=== PATIENT | female | born 1995 | race Caucasian/White ===

== ENCOUNTER 2020-02-08 08:00 | Outpatient (CLI) | payer OTHER ==
[2020-02-08 13:02] LABS: FOLLICLE STIMULATING HORMONE 7.25 mIU/mL
[2020-02-09 06:20] LABS: ESTRADIOL 132 pg/mL
[2020-02-10 12:34] LABS: DHEA SULFATE 357 mcg/dL (18-391)
== END 2020-02-08 23:59 | disposition home or self-care (01) ==
LOC: LAB.WCP 08:00
PROVIDERS: ATTEND Obstetrics & Gynecology
DX: N92.6 Irregular menstruation, unspecified (principal)
CPT/HCPCS: 36415; 82627; 82670; 83001; 84146; 84403; 84443; 84702

== ENCOUNTER 2020-02-23 14:48 | Outpatient (CLI) | payer OTHER | END 2020-02-23 23:59 | disposition home or self-care (01) | LOC: LAB.WCP 14:48 | PROVIDERS: ATTEND Nurse Practitioner Family | DX: Z02.1 Encounter for pre-employment examination (principal) | CPT/HCPCS: 36415; 86787 ==

== ENCOUNTER 2020-03-07 07:18 | Outpatient (CLI) | payer OTHER ==
--- NOTE | 2020-03-07 13:33 | Ultrasound Report ---
Reason: AMENORRHEA Procedure Date: 03/07/2020 Accession Number: [id number] Procedure: US - Pelvic w/Transvaginal CPT Code: Final Report FULL RESULT: EXAM: PELVIC ULTRASOUND EXAM DATE: 03/07/2020 08:23 AM. CLINICAL HISTORY: Amenorrhoea. COMPARISON: None. TECHNIQUE: Realtime transabdominal pelvic scan performed to identify the uterus and adnexa and as an overview of other pelvic structures, followed by transvaginal scan to provide greater detail of the uterus and adnexa, with static image documentation. FINDINGS: Uterus: 6.4 x 3.4 x 5.1 cm, volume 58 cc. Anteverted position. Normal overall size and echotexture. Masses: None. Endometrium: 4 mm. Normal. Cervix: Unremarkable. Right Ovary: 4.9 x 3.4 x 2.0 cm, volume 17 cc. The ovary is prominent and numerous small follicles are present greater in number than typical. Normal ovarian blood flow. Left Ovary: 4.2 x 3.2 x 3.0 cm, volume 21 cc. The ovary is prominent and numerous small follicles are present greater in number than typical. Normal ovarian blood flow. Free Fluid: Trace. Other: None. IMPRESSION: Ovaries are prominent bilaterally with numerous follicles in a pattern consistent with polycystic ovarian syndrome in the correct clinical setting. RADIA
== END 2020-03-07 07:19 | disposition home or self-care (01) ==
LOC: DI 07:18
PROVIDERS: ATTEND Obstetrics & Gynecology
DX: N91.2 Amenorrhea, unspecified (principal)
CPT/HCPCS: 76830; 76856

== ENCOUNTER 2020-06-09 09:39 | Outpatient (CLI) | payer OTHER | END 2020-06-09 23:59 | disposition home or self-care (01) | LOC: LAB.WCP 09:39 | PROVIDERS: ATTEND Obstetrics & Gynecology | DX: N91.2 Amenorrhea, unspecified (principal) | CPT/HCPCS: 36415; 84144; 84702 ==

== ENCOUNTER 2020-11-01 08:00 | Outpatient (CLI) | payer OTHER ==
[2020-11-02 12:28] LABS: BILIRUBIN,URINE NEGATIVE (NEGATIVE); GLUCOSE, URINE (UA) NEGATIVE (NEGATIVE); KETONES,URINE (UA) NEGATIVE (NEGATIVE); LEUKOCYTE ESTERASE, URINE NEGATIVE (NEGATIVE); NITRITE,URINE NEGATIVE (NEGATIVE); OCCULT BLOOD,URINE NEGATIVE (NEGATIVE); PROTEIN,URINE NEGATIVE (NEGATIVE); UROBILINOGEN,URINE 0.2 (NORMAL) E.U./dL (NORMAL)
[2020-11-02 12:39] LABS: CLARITY,URINE CLEAR (CLEAR)
[2020-11-02 13:16] LABS: BACTERIA,URINE Few /HPF (None Seen); MUCUS,URINE Few Strands; RBC,URINE None Seen /HPF (0-5); SQUAMOUS EPITHELIAL CELL,UR FEW Squamous (<= Few)
== END 2020-11-01 23:59 | disposition home or self-care (01) ==
LOC: LAB.R 08:00
PROVIDERS: ATTEND Obstetrics & Gynecology
DX: Z32.01 Encounter for pregnancy test, result positive (principal)
CPT/HCPCS: 81001; 87086

== ENCOUNTER 2020-11-14 07:31 | Outpatient (CLI) | payer OTHER ==
--- NOTE | 2020-11-14 18:39 | Ultrasound Report ---
PROCEDURE: OB First Trimester INDICATIONS: POSITIVE TEST OUTSIDE/PRIOR DATING DATA: Last menstrual period (LMP): 09/13/2020. LMP-based estimated date of delivery (TIM): 06/20/2021. First dating scan (date and location): 11/14/2020. Estimated date of delivery (TIM) from first dating scan: 06/30/2021. TECHNIQUE: Real-time scanning was performed of the fetus and maternal pelvic organs, with image documentation. COMPARISON: None. FINDINGS: Embryo: There is a single living intrauterine gestation with an estimated sonographic gestational ag e of approximately 7 weeks and 3 days based off crown-rump length measurement of 1.26 cm. Normal yolk sac visualized. No perigestational hemorrhage. heart rate measures approximately 141 bpm. Measurement variability in dating: +/- 4 weeks by LMP, +/- 7 days by mean sac diameter (use before 6 weeks gestation if crown-rump length not able to be measured), +/- 5 days by crown-rump length (6-12 weeks gestation). Maternal organs: Ovaries are unremarkable. Maternal cervix is visibly normal and appears long and cl osed. IMPRESSION: Single living intrauterine gestation with an estimated sonographic gestational age of approximately 7 weeks and 3 days based off crown-rump length measurement versus approximately 7 weeks and 4 days bas ed off mean gestational sac diameter. Recommend continued clinical and imaging surveillance with follow-up routine second trimester a natomic screening survey. Reviewed by: Sarmad Bueno MD on 11/14/2020 5:38 PM LUCIANO Approved by: Sarmad Bueno MD on 11/14/2020 5:38 PM [place] Station ID: [id number]
== END 2020-11-14 07:32 | disposition home or self-care (01) ==
LOC: DI 07:31
PROVIDERS: ATTEND Advanced Practice Midwife
DX: Z32.01 Encounter for pregnancy test, result positive (principal)

== ENCOUNTER 2020-11-28 08:00 | Outpatient (CLI) | payer OTHER ==
[2020-11-28 10:43] LABS: BASOPHILS % (AUTO) 0.3 %; EOSINOPHILS # (AUTO) 0.2 10^3/uL (0.0-0.7); EOSINOPHILS % (AUTO) 1.8 %; HGB - HEMOGLOBIN 13.6 g/dL (12.0-16.0); LYMPHOCYTES # (AUTO) 2.3 10^3/uL (1.5-3.5); LYMPHOCYTES % (AUTO) 18.4 %; MEAN CORPUSCULAR HEMOGLOBIN 30.7 pg (27.0-31.0); MEAN CORPUSCULAR HGB CONC 34.4 g/dL (32.0-36.0); MEAN CORPUSCULAR VOLUME 89.2 fL (81.0-99.0); MEAN PLATELET VOLUME 9.5 fL (7.9-10.8); MONOCYTES % (AUTO) 7.9 %; NEUTROPHILS # (AUTO) 8.7 10^3/uL (1.5-6.6); PLT - PLATELET COUNT 308 10^3/uL (130-450); RED BLOOD COUNT 4.43 10^6/uL (4.20-5.40); RED CELL DISTRIBUTION WIDTH 11.9 % (12.0-15.0); WHITE BLOOD COUNT 12.3 x10^3/uL (4.8-10.8)
[2020-11-28 12:34] LABS: HEMOGLOBIN A1c% 4.8 % (4.27-6.07)
[2020-11-28 13:50] LABS: ALBUMIN 4.2 g/dL (3.2-5.5); ALBUMIN/GLOBULIN RATIO 1.2 (1.0-2.2); BILIRUBIN,TOTAL 0.5 mg/dL (0.2-1.0); CALCIUM 9.3 mg/dL (8.5-10.3); CREATININE 0.6 mg/dL (0.4-1.0); TOTAL PROTEIN 7.6 g/dL (6.7-8.2)
[2020-11-29 12:22] LABS: HEPATITIS C ANTIBODY NON-REACTIVE (NON-REACTIVE)
[2020-11-29 12:23] LABS: HEPATITIS B SURFACE ANTIGEN NON-REACTIVE (NON-REACTIVE)
[2020-11-29 13:42] LABS: HIV AG/AB 4TH GEN NON-REACTIVE (NON-REACTIVE)
== END 2020-11-28 23:59 | disposition home or self-care (01) ==
LOC: LAB 08:00
PROVIDERS: ATTEND Obstetrics & Gynecology
DX: O99.280 Endocrine, nutritional and metabolic diseases complicating pregnancy, unspecified trimester (principal); E28.2 Polycystic ovarian syndrome; Z36.89 Encounter for other specified antenatal screening; Z86.79 Personal history of other diseases of the circulatory system
CPT/HCPCS: 36415; 80053; 80306; 81001; 81599; 83036; 84443; 85025; 86592; 86762; 86787; 86803; 86850; 86900; 86901; 87086; 87340; 87389

== ENCOUNTER 2020-11-28 08:00 | Outpatient (CLI) | payer OTHER ==
[2020-11-28 16:28] LABS: MUDS CUTOFF CONCENTRATIONS CUTOFF CONC BELOW:
[2020-11-28 16:39] LABS: BILIRUBIN,URINE NEGATIVE (NEGATIVE); GLUCOSE, URINE (UA) NEGATIVE (NEGATIVE); KETONES,URINE (UA) NEGATIVE (NEGATIVE); LEUKOCYTE ESTERASE, URINE TRACE (NEGATIVE); NITRITE,URINE NEGATIVE (NEGATIVE); OCCULT BLOOD,URINE NEGATIVE (NEGATIVE); PROTEIN,URINE NEGATIVE (NEGATIVE); UROBILINOGEN,URINE 0.2 (NORMAL) E.U./dL (NORMAL)
[2020-11-28 16:54] LABS: AMPHETAMINE SCREEN,URINE NEGATIVE (NEGATIVE); BENZODIAZEPINES SCREEN, URINE NEGATIVE (NEGATIVE); COCAINE SCREEN URINE NEGATIVE (NEGATIVE); METHADONE SCREEN, URINE NEGATIVE (NEGATIVE); METHAMPHETAMINES SCREEN, URINE NEGATIVE (NEGATIVE); OPIATE SCREEN, URINE NEGATIVE (NEGATIVE); OXYCODONE SCREEN, URINE NEGATIVE (NEGATIVE); PROPOXYPHENE SCREEN, URINE NEGATIVE (NEGATIVE); TRICYCLIC ANTIDEPRESSANT,URINE NEGATIVE (NEGATIVE)
[2020-11-28 16:59] LABS: CREATININE,URINE 85.7 mg/dL
[2020-11-28 17:00] LABS: TOTAL PROTEIN,URINE TIMED < 6 mg/dL
[2020-11-28 17:04] LABS: BACTERIA,URINE Few /HPF (None Seen); CLARITY,URINE CLEAR (CLEAR); RBC,URINE 0-5 /HPF (0-5); SQUAMOUS EPITHELIAL CELL,UR FEW Squamous (<= Few)
[2020-11-28 21:54] LABS: TRICHOMONAS VAGINALIS DNA NEGATIVE (NEGATIVE)
== END 2020-11-28 23:59 | disposition home or self-care (01) ==
LOC: LAB.R 08:00
PROVIDERS: ATTEND Obstetrics & Gynecology
DX: Z34.90 Encounter for supervision of normal pregnancy, unspecified, unspecified trimester (principal); Z36.89 Encounter for other specified antenatal screening; Z11.3 Encounter for screening for infections with a predominantly sexual mode of transmission; Z86.79 Personal history of other diseases of the circulatory system
CPT/HCPCS: 80306; 81001; 82570; 84156; 87086; 87491; 87591; 87661

== ENCOUNTER 2020-12-27 08:00 | Outpatient (CLI) | payer OTHER ==
[2020-12-27 16:41] LABS: CREATININE,URINE 81.4 mg/dL
[2020-12-27 16:58] LABS: TOTAL PROTEIN,URINE TIMED < 6 mg/dL
[2020-12-28 15:51] LABS: CREATININE 24 HOUR,URINE 2076 mg/24h (600-1800); TOTAL VOLUME 24HRS,URINE 2550 mL
== END 2020-12-27 23:59 | disposition home or self-care (01) ==
LOC: LAB 08:00
PROVIDERS: ATTEND Obstetrics & Gynecology
DX: O16.9 Unspecified maternal hypertension, unspecified trimester (principal)
CPT/HCPCS: 82570; 84156

== ENCOUNTER 2021-01-03 11:59 | Outpatient (CLI) | payer OTHER | END 2021-01-03 12:00 | disposition home or self-care (01) | LOC: LAB 11:59 | PROVIDERS: ATTEND Advanced Practice Midwife | DX: O46.92 Antepartum hemorrhage, unspecified, second trimester (principal); Z87.59 Personal history of other complications of pregnancy, childbirth and the puerperium | CPT/HCPCS: 36415; 84702; 86850 ==

== ENCOUNTER 2021-02-12 08:11 | Outpatient (CLI) | payer OTHER ==
--- NOTE | 2021-02-12 11:06 | Ultrasound Report ---
PROCEDURE: OB Detailed Eval INDICATIONS: SUPERVISION OF HIGH RISK OUTSIDE/PRIOR DATING DATA: Last menstrual period (LMP): 09/13/2020. LMP-based estimated date of delivery (TIM): 06/20/2021. First dating scan (date and location): 11/14/2020. Estimated date of delivery (TIM) from first dating scan: 06/30/2021. TECHNIQUE: Real-time scanning was performed of the fetus, with image documentation and biometric measurements. Endovaginal scanning: Not indicated COMPARISON: 11/14/2020. FINDINGS: General: A single living intrauterine gestation is present. Presentation: Vertex Placenta: Placental position is low posterior, without previa. Amniotic fluid index: 11 cm, 14.7 percentile for gestational age. Largest pocket measures 3.8 cm. heart rate: 144 beats per minute. Maternal cervical canal: 3.6 cm long; normal length is 2.5 cm or more. biometrics: Biparietal diameter: 4.8 cm, 20 weeks, 3 days Head circumference: 17.4 cm, 20 weeks, 0 day Abdominal circumference: 14.8 cm, 20 weeks, 1 day Femur length: 3.3 cm, 20 weeks, 2 days Estimated gestational age from initial scan: 20 weeks, 2 days. Composite gestational age from present scan: 20 weeks, 2 days Estimated weight and percentile: 340 g, 41.3%. Measurement variability in biometric dating: +/- 10 days from 12-20 weeks gestation, +/- 2 weeks from 20-30 weeks gestation, +/- 3 weeks at 30 weeks gestation or later. Anatomic survey: Neuro: Ventricles are normal at less than 10 mm. Cisterna magna is normal at 3-11 mm. Cerebellum i s normal in size and morphology. Nuchal skin fold: Normal at less than 6 mm between 14 and 20 weeks gestational age. Face: Nose and lips, facial profile are normal. Spine: No evidence for spina bifida. Heart: 4-chambered heart is present, with normal ventricular outflow tracts. Diaphragm: Diaphragm is intact. Stomach: Left-sided stomach is present. Kidneys: No hydronephrosis. Normal is less than 5 mm in 2nd trimester, less than 7 mm in 3rd trimester. Cord: 3 vessel cord has orthotopic insertion. Bladder: Normal in size. Extremities: All 4 extremities are visualized. IMPRESSION: 1. Single live intrauterine with fetus in vertex presentation. heart rate is 144 bpm. 2. Estimated weight is at 41.3 percentile. 3. OSCAR equals 11 cm with largest pocket measures 3.8 cm which is at 14.7 percentile. 4. Normal anatomic survey. Reviewed by: Hugo Blancas MD on 02/12/2021 10:05 AM CHARMAINE Approved by: Hugo Blancas MD on 02/12/2021 10:05 AM HIGIULIA Station ID: [id number]
== END 2021-02-12 08:12 | disposition home or self-care (01) ==
LOC: DI 08:11
PROVIDERS: ATTEND Obstetrics & Gynecology
DX: Z36.89 Encounter for other specified antenatal screening (principal); O09.90 Supervision of high risk pregnancy, unspecified, unspecified trimester; Z3A.20 20 weeks gestation of pregnancy

== ENCOUNTER 2021-02-20 14:31 | Outpatient (CLI) | payer OTHER ==
[2021-02-20 18:21] LABS: PROTEIN/CREATININE RATIO,URINE 0.1 (<=0.2)
[2021-02-20 18:28] LABS: ALBUMIN 3.7 g/dL (3.2-5.5); ALBUMIN/GLOBULIN RATIO 1.1 (1.0-2.2); BILIRUBIN,TOTAL 0.5 mg/dL (0.2-1.0); CALCIUM 8.7 mg/dL (8.5-10.3); CREATININE 0.6 mg/dL (0.4-1.0); POTASSIUM 3.5 mmol/L (3.5-5.0); TOTAL PROTEIN 7.1 g/dL (6.7-8.2)
[2021-02-20 18:38] LABS: HCT - HEMATOCRIT 36.2 % (37.0-47.0); HGB - HEMOGLOBIN 12.2 g/dL (12.0-16.0); MEAN CORPUSCULAR HEMOGLOBIN 31.7 pg (27.0-31.0); MEAN CORPUSCULAR HGB CONC 33.7 g/dL (32.0-36.0); MEAN PLATELET VOLUME 10.8 fL (7.9-10.8); RED BLOOD COUNT 3.85 10^6/uL (4.20-5.40); RED CELL DISTRIBUTION WIDTH 12.7 % (12.0-15.0); WHITE BLOOD COUNT 11.2 x10^3/uL (4.8-10.8)
== END 2021-02-20 23:59 | disposition home or self-care (01) ==
LOC: LAB.WCP 14:31
PROVIDERS: ATTEND Obstetrics & Gynecology
DX: O16.9 Unspecified maternal hypertension, unspecified trimester (principal); O09.90 Supervision of high risk pregnancy, unspecified, unspecified trimester
CPT/HCPCS: 36415; 80053; 82570; 84156; 85027

== ENCOUNTER 2024-04-14 15:18 | Outpatient (CLI) | payer OTHER ==
--- NOTE | 2024-04-14 22:56 | Ultrasound Report ---
PROCEDURE: OB Anatomy Scan INDICATIONS: SUPERVISION OF NORMAL OUTSIDE/PRIOR DATING DATA: Last menstrual period (LMP): 08/31/2023. LMP-based estimated date of delivery (TIM): 08/24/2024. First dating scan (date and location): 04/14/2024. Estimated date of delivery (TIM) from first dating scan: 08/24/2024. The below data below was generated using the clinical/ultrasound TIM of 08/24/2024 TECHNIQUE: Real-time scanning was performed of the fetus, with image documentation and biometric measurements. COMPARISON: None FINDINGS: General: A single living intrauterine gestation is present. Presentation: Variable Placenta: Placental position is posterior, without previa. Amniotic fluid index: 11.9 cm, within normal limits for gestational age. heart rate: 143 beats per minute. Maternal cervical canal: 5.0 cm long; normal length is 2.5 cm or more. biometrics: Biparietal diameter: 5.0 cm 21 weeks 0 days 42nd percentile Head circumference: 19.1 cm 21 weeks 3 days 51st percentile Abdominal circumference: 16.5 cm 21 weeks 4 days 57th percentile Femur length: 3.7 cm 21 weeks 5 days 61st percentile Estimated gestational age from initial scan: 21 weeks 1 day Composite gestational age from present scan: 21 weeks 2 days Estimated weight and percentile: 435 g 69th percentile Measurement variability in biometric dating: +/- 10 days from 12-20 weeks gestation, +/- 2 weeks from 20-30 weeks gestation, +/- 3 weeks at 30 weeks gestation or later. Anatomic survey: Neuro: Ventricles are normal at less than 10 mm. Cisterna magna is normal at 3-11 mm. Cerebellum i s normal in size and morphology. Nuchal skin fold: Normal at less than 6 mm between 14 and 20 weeks gestational age. Face: Nose and lips, facial profile are normal. Spine: No evidence for spina bifida. Heart: 4-chambered heart is present, with normal ventricular outflow tracts. Diaphragm: Diaphragm is intact. Stomach: Left-sided stomach is present. Kidneys: No hydronephrosis. Normal is less than 5 mm in 2nd trimester, less than 7 mm in 3rd trimester. Cord: 3 vessel cord has orthotopic insertion. Bladder: Normal in size. Extremities: All 4 extremities are visualized. IMPRESSION: Single live intrauterine with gestational age today of 21 weeks 2 days. Anatomy is within normal limits. Reviewed by: Kim Alberts MD on 04/14/2024 10:55 PM PDT Approved by: Kim Alberts MD on 04/14/2024 10:55 PM PDT Station ID: [id number]
== END 2024-04-14 15:19 | disposition home or self-care (01) ==
LOC: DI 15:18
PROVIDERS: ATTEND Nurse Practitioner Obstetrics & Gynecology
DX: Z34.02 Encounter for supervision of normal first pregnancy, second trimester (principal); Z36.89 Encounter for other specified antenatal screening

== ENCOUNTER 2024-05-14 14:31 | Outpatient (CLI) | payer OTHER ==
[2024-05-14 15:56] LABS: HCT - HEMATOCRIT 35.2 % (37.0-47.0); HGB - HEMOGLOBIN 12.1 g/dL (12.0-16.0); MEAN CORPUSCULAR HEMOGLOBIN 31.7 pg (27.0-31.0); MEAN CORPUSCULAR HGB CONC 34.4 g/dL (32.0-36.0); MEAN CORPUSCULAR VOLUME 92.1 fL (81.0-99.0); RED BLOOD COUNT 3.82 10^6/uL (4.20-5.40); RED CELL DISTRIBUTION WIDTH 12.9 % (12.0-15.0)
== END 2024-05-14 14:32 | disposition home or self-care (01) ==
LOC: LAB 14:31
PROVIDERS: ATTEND Nurse Practitioner Obstetrics & Gynecology
DX: Z36.9 Encounter for antenatal screening, unspecified (principal); Z67.91 Unspecified blood type, Rh negative
CPT/HCPCS: 36415; 82950; 85027; 86850

== ENCOUNTER 2024-07-27 17:14 | Outpatient (CLI) | payer OTHER | END 2024-07-27 17:15 | disposition home or self-care (01) | LOC: LAB.WC 17:14 | PROVIDERS: ATTEND Nurse Practitioner | DX: Z36.85 Encounter for antenatal screening for Streptococcus B (principal) | CPT/HCPCS: 87797 ==

== ENCOUNTER 2024-08-17 06:21 | Inpatient (IN) ==
[2024-08-17] MEDS ORDERED: hydrALAZINE INJ 20 MG/ML VIAL IVP PRN (06:40)
[2024-08-17] MEDS ORDERED: miSOPROStoL 200 MCG TABLET PR PRN (06:40)
[2024-08-17] MEDS ORDERED: TERBUTALINE 1 MG/ML VIAL SUBQ PRN (06:40)
[2024-08-17] MEDS ORDERED: NIFEdipine 10 MG CAPSULE PO PRN (06:40)
[2024-08-17] MEDS ORDERED: CARBOPROST TROMETHAMINE 250 MCG/ML VIAL IM PRN (06:40)
[2024-08-17] MEDS ORDERED: TRANEXAMIC ACID IN NACL 1,000 MG/100 ML BAG IV PRN (06:40)
[2024-08-17] MEDS ORDERED: miSOPROStoL 200 MCG TABLET BC PRN (06:40)
[2024-08-17] MEDS ORDERED: LABETALOL 20 MG/4 ML SYRINGE IVP PRN ×3 (06:40)
[2024-08-17] MEDS ORDERED: OXYTOCIN 10 UNIT/ML VIAL IM PRN (06:40)
[2024-08-17] MEDS ORDERED: lidocaine 1% 20 ML MDV ID PRN (06:40)
[2024-08-17] MEDS ORDERED: SODIUM CHLORIDE FLUSH 0.9% 10 ML SYRINGE IVP PRN (06:40)
[2024-08-17] MEDS ORDERED: fentaNYL 100 MCG/2 ML VIAL IVP PRN (06:40)
[2024-08-17] MEDS ORDERED: OXYTOCIN/SODIUM CHLORIDE 500 ML IV PRN ×2 (06:40→14:36)
[2024-08-17 07:49] LABS: BASOPHILS % (AUTO) 0.4 %; EOSINOPHILS # (AUTO) 0.2 10^3/uL (0.0-0.7); EOSINOPHILS % (AUTO) 2.2 %; HCT - HEMATOCRIT 35.4 % (37.0-47.0); HGB - HEMOGLOBIN 11.7 g/dL (12.0-16.0); LYMPHOCYTES # (AUTO) 2.1 10^3/uL (1.5-3.5); LYMPHOCYTES % (AUTO) 21.7 %; MEAN CORPUSCULAR HEMOGLOBIN 29.8 pg (27.0-31.0); MEAN CORPUSCULAR HGB CONC 33.1 g/dL (32.0-36.0); MEAN CORPUSCULAR VOLUME 90.3 fL (81.0-99.0); MEAN PLATELET VOLUME 11.3 fL (7.9-10.8); MONOCYTES # (AUTO) 0.7 10^3/uL (0.0-1.0); MONOCYTES % (AUTO) 7.4 %; NEUTROPHILS # (AUTO) 6.5 10^3/uL (1.5-6.6); NEUTROPHILS % (AUTO) 67.7 %; PLT - PLATELET COUNT 256 10^3/uL (130-450); RED BLOOD COUNT 3.92 10^6/uL (4.20-5.40); RED CELL DISTRIBUTION WIDTH 13.9 % (12.0-15.0); WHITE BLOOD COUNT 9.6 x10^3/uL (4.8-10.8)
[2024-08-17] MEDS: LACTATED RINGERS 1,000 ML IV PRN (07:49)
[2024-08-17] MEDS ORDERED: LIDOCAINE 2%-EPI 1:100000 20 ML MDV ONE (07:50)
[2024-08-17] MEDS ORDERED: ROPIVACAINE 0.2% 200 MG/100 ML BAG EP ONE (07:50)
[2024-08-17] MEDS: SODIUM CHLORIDE FLUSH 0.9% 10 ML SYRINGE IVP SCH (08:00)
[2024-08-17] MEDS ORDERED: ePHEDrine 50 MG/ML VIAL IVP ONE (08:22)
[2024-08-17 08:30] LABS: ALBUMIN 3.3 g/dL (3.2-5.5); BILIRUBIN,TOTAL 0.3 mg/dL (0.2-1.0); CREATININE 0.6 mg/dL (0.6-1.3); POTASSIUM 3.7 mmol/L (3.5-4.5); TOTAL PROTEIN 6.5 g/dL (6.4-8.9)
[2024-08-17] MEDS ORDERED: ePHEDrine 50 MG/ML VIAL IVP PRN (08:42)
[2024-08-17] MEDS ORDERED: diphenhydrAMINE INJ 50 MG/ML VIAL IVP PRN (08:42)
[2024-08-17] MEDS ORDERED: METOCLOPRAMIDE 10 MG/2 ML VIAL IVP PRN (08:42)
[2024-08-17] MEDS ORDERED: NALBUPHINE 10 MG/ML AMP IVP PRN (08:42)
[2024-08-17] MEDS ORDERED: ONDANSETRON 4 MG/2 ML VIAL IVP PRN (08:42)
[2024-08-17] MEDS ORDERED: NALOXONE 0.4 MG/ML VIAL IVP PRN (08:42)
--- NOTE | 2024-08-17 08:42 | ANESTHESIA PROCEDURE NOTE ---
Pre-Anesthesia VS, & Labs Diagnosis Surgical Diagnosis:: labor pain Procedure Procedure: labor epidural Vitals Vital Signs: Temp Pulse Resp BP 37.0 C 100 H 16 143/96 H 08/17/24 07:53 08/17/24 07:53 08/17/24 07:53 08/17/24 07:53 Height (in): 5 ft 9 in NPO NPO: Other Is Patient ?: Yes Lab Results Current Lab Results: Laboratory Tests 08/17/24 07:53: Sodium 133 L, Potassium 3.7, Chloride 104, Carbon Dioxide 22, Anion Gap 7.0, BUN 9, Creatinine 0.6, Estimated GFR (MDRD) 118, Glucose 111 H, Calcium 9.0, Total Bilirubin 0.3, AST 12, ALT 11, Alkaline Phosphatase 97, Total Protein 6.5, Albumin 3.3, Globulin 3.2, Albumin/Globulin Ratio 1.0 08/17/24 07:25: WBC 9.6, RBC 3.92 L, Hgb 11.7 L, Hct 35.4 L, MCV 90.3, MCH 29.8, MCHC 33.1, RDW 13.9, Plt Count 256, MPV 11.3 H, Neut # (Auto) 6.5, Lymph # (Auto) 2.1, [place] # (Auto) 0.7, Eos # (Auto) 0.2, Baso # (Auto) 0.0, Absolute Nucleated RBC 0.00, Nucleated RBC % 0.0 08/17/24 07:25 08/17/24 07:53 Meds/Allgy Allergies Allergies Allergy/AdvReac Type Severity Reaction Status Date / Time No Known Drug Allergies Allergy Verified 08/17/24 07:48 [facility] Medical History Medical History (Updated 08/13/24 @ 19:06 by Carolynn Worthington CNM, ANGELICA) History of PCOS Family History Family History (Updated 08/13/24 @ 08:54 by Pili Pleitez LPN) Mother High blood pressure Thyroid disease Brother High blood pressure Aunt Breast cancer Social History Social History (Updated 08/13/24 @ 08:51 by Pili Pleitez LPN) Smoking Status: Never smoker Do you dip or chew tobacco?: No Do you feel safe in your home environment?: Yes Frequency: Weekly ETOH Use Details: two weekly Substance Use: denies use Anesthesia Exam (Expanded) Exam General: Alert, Oriented x3 and Cooperative Dental: WNL Mouth Openin Fingerbreadth Neck Mobility: Normal Mallampati classification: II Thyromental Distance: 4-6 cm Respiratory: Lungs clear Cardiovascular: Regular rate Plan Plan Anesthesia Type: Epidural Consent for Procedure(s) Verified and Reviewed: Yes Code Status: Attempt Resuscitation ASA Classification ASA classification: 3-Severe systemic disease Is this case an emergency?: No
[2024-08-17] MEDS: LACTATED RINGERS 500 ML IV ONE (09:00)
[2024-08-17] MEDS: OXYTOCIN/SODIUM CHLORIDE 500 ML IV SCH (09:57)
--- NOTE | 2024-08-17 10:01 | HISTORY & PHYSICAL EXAMINATION ---
Admit History Visit Reason Visit Reason: Contractions and Membranes rupture : 4 Parity: 2 Premature: 0 Ectopic: 0 : 1 Risk/History: positive None Complications This : positive induced HTN Smoking Status: Never smoker Mother's Labs Mother's Blood Type: positive O Mother's RH: positive Negative GBS: positive Group B Step Negative Rubella Status: positive Immune HPI Current : Vital Signs Temperature 37.0 C 08/17/24 07:53 Pulse Rate 100 H 08/17/24 07:53 Respiratory Rate 16 08/17/24 07:53 Blood Pressure 143/96 H 08/17/24 07:53 Temperature 37.0 C 08/17/24 07:53 Pulse Rate 100 H 08/17/24 07:53 Respiratory Rate 16 08/17/24 07:53 Blood Pressure 143/96 H 08/17/24 07:53 NST Procedure NST Procedure: NST reactive. FHR baseline 150s, moderate variability, + accels, no decels Contractions palpate moderate occasionally with soft resting tone Meds/Allgy Allergies Allergies Allergy/AdvReac Type Severity Reaction Status Date / Time No Known Drug Allergies Allergy Verified 08/17/24 07:48 [facility] Medical History Medical History (Updated 08/13/24 @ 19:06 by Carolynn Worthington, YARA, ANGELICA) History of PCOS Family History Family History (Updated 08/13/24 @ 08:54 by Pili Pleitez LPN) Mother High blood pressure Thyroid disease Brother High blood pressure Aunt Breast cancer Social History Social History (Updated 08/13/24 @ 08:51 by Pili Pleitez LPN) Smoking Status: Never smoker Do you dip or chew tobacco?: No Do you feel safe in your home environment?: Yes Frequency: Weekly ETOH Use Details: two weekly Substance Use: denies use Review of Systems Constitutional Denies: Fatigue, Fever or Chills Cardiovascular Denies: Irregular heart rate, chest pain or shortness of breath with exertion Respiratory Denies: Shortness of breath, Wheezing or SOB at rest Gastrointestinal Denies: Abdominal pain, Nausea, Diarrhea or Constipation Genitourinary Denies: Painful urination, Urinary frequency, Urinary urgency, Urinary incontinence, Painful menstruation, Vaginal discharge, Change in menstrual flow, Genital itching, Vaginal odor or Pain during intercourse Neurological Denies: Headache Psychiatric Denies: Depression or Anxiety Endocrine Denies: Fatigue Allergic/Immunologic Denies: Wheezing Physical Abdominal Exam Vital Signs: Temp Pulse Resp BP 37.0 C 100 H 16 143/96 H 08/17/24 07:53 08/17/24 07:53 08/17/24 07:53 08/17/24 07:53 Contraction Intensity: positive Moderate Uterine Resting Tone: positive Soft Monitoring Heart Rate Baseline: 150 Strip Review: positive Category I Presentation Presentation: positive Vertex Vaginal Exam Membranes: positive Membranes ruptured Dilation (in cm): 5 Effacement (%): 70 Station: positive -2 Cervical Position: positive Midposition Speculum Exam Speculum Exam Performed: positive No Findings: positive Gross leak Plan for Labor Plan For Labor I expect patient to be DC'd or transferred within 96 hours.: Yes Plan for Labor: Pauline presents to [facility] w/ complaints of active labor. She is a who is currently 39.0wks gestation. She reports waking early this morning to a strong contraction which was followed by leakage of "gush" of clear vaginal fluid. She reports occasional painful contractions since that time. Upon arrival cervix was 5/70/-3, posterior and vertex with grossly ruptured membranes. FHR demonstrates Category I pattern with 150bpm baseline. She will be admitted to [facility] for expectant management and she is requesting and epidural as soon as possible for pain management. She has been a patient of [facility] care since her transfer for [facility] from [facility] at 36wks gestation. She has received consistent care for the duration of her which has been complicated by intermittently elevated blood pressure giving her the diagnosis of gestational hypertension. She has tracked her blood pressure at home consistently throughout her and it has always remained WNL. She has had labs intermittently throughout her and they have remained WNL. She denies SOLOMON, visual disturbances RUQ or epigastric pain. She reports edema but feels it is consistent with what it has been in her previous pregnancies at this gestational age. In addition to her gestational hypertention she has a history significant for hemorrhage following her last delivery and will by typed and crossmatched with 2 units of blood on hold at the time of delivery. Pt accepting of blood transfusion if necessary and accepts active management of the third stage of labor. Dating criteria: LMP: unknown TIM by LMP: N/A US: first trimester ultrasound dates with TIM 08/24/2024 Final TIM: 08/24/2024 OB Hx: ; Chris G1: SAB G2: 06/13/2021- [facility] G3: 01/07/2023 - [facility]. PP hemorrhage marketing sales supervisor Hx: Term NSVB x 2. SAB x 1. Last pap 06/2022 WNL, no hx abnormal. Denies history of gonorrhea, chlamydia, genital herpes, oral herpes, or any other STIs. Sexual partner does NOT have HSV (oral or genital). Medical Hx: PCOS, Hypothyroidism Surgical Hx: none Social Hx: Monogomous with male partner Chris. Stopped drinking alcohol due to . Denies current use of tobacco, marijuana, or other recreational drugs. Reports that she is safe in current relationship. Family Hx: Thyroid disease - mother; Denies family hx of congenital anomalies, Cystic Fibrosis or chromosomal abnormalities. Pre- Weight: 207 BMI: 30 Blood type: O neg Antibody Screen: neg RUB: NR VZV: immune HBsAg: NR HepC: NR RPR: NR HIV: NR Flu: 07/27/2024 Covid: x1 PAP: 06/2022 WNL, no hx abnormal GC/CT: neg HSV: Denies in self and partner Genetic testing: declined FAS: 04/14/2024 WNL Placenta: Posterior, no previa Cord: 3VC OCSAR: 11.9 (WNL) EFW: 69%tile 50gm OGCT: 111 TDAP: 07/27/24 Breast Pump: has Antibody screen: negative 05/14/2024 RHOGAM administered: 06/01/2024 CBC: PLT-261/HCT-35.2/HGB-12.1 GBS: 07/27/2024- Negative Delivery plan: Desires epidural for pain management MOD: Anticipate . PP BC: natural family planning - unsure of plans for future Physical exam: normocephalic, atraumatic heart RRR w/o m/g/r Lungs CTAB Abdomen gravid, soft, nontender EFW 3900g FHR baseline 150s, moderate variability, + accels, no decels contractions palpate strong occasionally with soft resting tone SVe 5/70/-3, posterior. Vertex. Grossly ruptured membranes, clear fluid Bilateral LE's trace edema. Mood is good Assessment: 29yo @ 39.0wks gestation Gestational hypertension Active labor FHR Category I GBS neg Plan: Anesthesia notified for placement of epidural for pain management per pt request. Continuous monitoring. Encouraged position changes in bed on peanut ball. Type and cross x 2 units secondary to hx of pp hemorrhage. Anticipate . Conclusion/Plan Lab Results 08/17/24 07:25 08/17/24 07:53
[2024-08-17] MEDS ORDERED: HYDROCORTISONE 1% CREAM 28 GM TUBE TOP PRN (14:36)
[2024-08-17] MEDS ORDERED: SIMETHICONE CHEW 80 MG TABLET PO PRN (14:36)
[2024-08-17] MEDS ORDERED: WITCH HAZEL/GLYCERIN 1 PAD TOP PRN (14:36)
[2024-08-17] MEDS: ACETAMINOPHEN 500 MG TABLET PO PRN (15:04)
[2024-08-17] MEDS: IBUPROFEN 800 MG TABLET PO PRN (15:04)
--- NOTE | 2024-08-17 18:39 | DELIVERY NOTE ---
Delivery Note Labor Labor: positive Spontaneous and Augmented by oxytocin Delivery Method Infant Delivery Method: positive Spontaneous vaginal delivery Presentation Presentation: positive Vertex and JENNA - left occiput anterior Nuchal Cord Nuchal Cord: positive None Amniotic Fluid Description Amniotic Fluid Description: positive Clear Episiotomy Type Episiotomy Type: positive None Laceration Laceration: positive 1st degree Suture Suture Type: positive Vicryl Suture Size: positive 3-0 Delivery Outcome Delivery Outcome: positive Livebirth : positive Placed in direct skin contact with mother, Stimulated, Warmed and [place] used sex: positive Male Cord Cord: positive 3 vessels Placenta Placenta: positive Intact and Spontaneous Estimated Blood Loss Estimated Blood Loss (in cc): 375 Post Delivery Events Post Delivery Events: positive No post delivery events Delivery Comments (Free Text/Narrative) Delivery Comments (Free Text/Narrative): Labor: This 29yo @ 39.0 wks gestation by LMP presented to [facility] in active labor and s/p SROM with vaginal leakage of clear fluid that occurred at 0545 on 08/17/2024. Cervix was 5/70/-2 and vertex. FHR demonstrated Category I pattern throughout labor. Normal labor course. Epidural placed per maternal request. She progressed to c/c/+1 at 1341 with onset of pushing at 1402. : Normal SVB of viable male on 08/17/2024 @ 1406. Nucal. The was placed on maternal abdomen, stimulated, dried, and placed skin to skin. 's were 8/9 at 1 and 5 min respectively. Pitocin administered via IV for hemostasis. The umbilical cord was allowed to stop pulsating at which time it was doubly clamped by CNM and cut by FOB. Cord blood was obtained. 3VC. Fundal massage and gentle cord traction applied for active management of the third stage. Placenta delivered spontaneously and intact at 1412. EBL 375mL. Fourth stage: Uterine fundus firm and there is no excessive bleeding. The perineum, vagina, and cervix were inspected and found to have a 1st degree perineal laceration which was repaired using a 3-[address]-1 needle, in standard fashion and under sterile conditions. Vaginal examination following repair was performed. Tissues well approximated. initiated. Both mother and baby were left in stable condition.
[2024-08-17] MEDS: DOCUSATE SODIUM 100 MG CAPSULE PO SCH (20:40)
[2024-08-17] MEDS: LABETALOL 100 MG TABLET PO SCH (21:06)
[2024-08-17 21:22] LABS: BASOPHILS % (AUTO) 0.3 %; EOSINOPHILS # (AUTO) 0.1 10^3/uL (0.0-0.7); EOSINOPHILS % (AUTO) 0.5 %; HCT - HEMATOCRIT 32.4 % (37.0-47.0); HGB - HEMOGLOBIN 10.7 g/dL (12.0-16.0); LYMPHOCYTES # (AUTO) 2.1 10^3/uL (1.5-3.5); LYMPHOCYTES % (AUTO) 14.8 %; MEAN CORPUSCULAR HEMOGLOBIN 29.8 pg (27.0-31.0); MEAN CORPUSCULAR VOLUME 90.3 fL (81.0-99.0); MONOCYTES # (AUTO) 1.6 10^3/uL (0.0-1.0); MONOCYTES % (AUTO) 11.2 %; NEUTROPHILS # (AUTO) 10.5 10^3/uL (1.5-6.6); NEUTROPHILS % (AUTO) 72.6 %; PLT - PLATELET COUNT 247 10^3/uL (130-450); RED BLOOD COUNT 3.59 10^6/uL (4.20-5.40); RED CELL DISTRIBUTION WIDTH 13.7 % (12.0-15.0); WHITE BLOOD COUNT 14.4 x10^3/uL (4.8-10.8)
[2024-08-17 21:32] LABS: SLIDE REVIEW? Indicated
[2024-08-17 21:34] LABS: BILIRUBIN,TOTAL 0.2 mg/dL (0.2-1.0); CALCIUM 8.6 mg/dL (8.5-10.3); CREATININE 0.7 mg/dL (0.6-1.3); POTASSIUM 4.2 mmol/L (3.5-4.5)
[2024-08-17 22:01] LABS: DIFFERENTIAL COMMENT MANUAL=AUTO DIFF; PLATELET ESTIMATE, MANUAL NORMAL (130-450,000) (NORMAL); PLATELET MORPHOLOGY NORMAL APPEARANCE (NORMAL); RBC MORPHOLOGY (MULTIPLE) NORMAL APPEARANCE (NORMAL)
[2024-08-18 08:43] LABS: BASOPHILS % (AUTO) 0.3 %; EOSINOPHILS # (AUTO) 0.1 10^3/uL (0.0-0.7); HCT - HEMATOCRIT 31.5 % (37.0-47.0); HGB - HEMOGLOBIN 10.2 g/dL (12.0-16.0); LYMPHOCYTES # (AUTO) 2.1 10^3/uL (1.5-3.5); LYMPHOCYTES % (AUTO) 17.8 %; MEAN CORPUSCULAR HEMOGLOBIN 29.5 pg (27.0-31.0); MEAN CORPUSCULAR HGB CONC 32.4 g/dL (32.0-36.0); MEAN PLATELET VOLUME 10.2 fL (7.9-10.8); MONOCYTES # (AUTO) 0.7 10^3/uL (0.0-1.0); MONOCYTES % (AUTO) 5.8 %; NEUTROPHILS # (AUTO) 8.8 10^3/uL (1.5-6.6); NEUTROPHILS % (AUTO) 74.4 %; PLT - PLATELET COUNT 229 10^3/uL (130-450); RED BLOOD COUNT 3.46 10^6/uL (4.20-5.40); RED CELL DISTRIBUTION WIDTH 14.1 % (12.0-15.0); WHITE BLOOD COUNT 11.8 x10^3/uL (4.8-10.8)
[2024-08-18 08:57] LABS: BILIRUBIN,TOTAL 0.2 mg/dL (0.2-1.0); CALCIUM 8.5 mg/dL (8.5-10.3); CREATININE 0.6 mg/dL (0.6-1.3)
[2024-08-18] MEDS ORDERED: LABETALOL 100 MG TABLET PO SCH (09:00)
[2024-08-18] MEDS: LABETALOL 100 MG TABLET PO SCH (09:00)
[2024-08-18 09:37] VITALS: O2SAT 99
[2024-08-18] MEDS: RHO(D) IMMUNE GLOBULIN 300 MCG SYRINGE IM ONE (11:58)
--- NOTE | 2024-08-18 16:23 | Discharge Summary ---
Discharge Summary Admit Date: 08/17/24 Discharge Date: 08/18/24 Code Status: Attempt Resuscitation HOSPITAL COURSE Hospital Course: Date of Admission: 08/17/2024 Date of Discharge: 08/18/2024 Diagnosis on Admission: 1. 29yo 2. SROM 3. Gestational hypertension 4. FHR Category I 5. GBS neg Diagnosis on Discharge: 1. 29yo PPD#1 s/p TSVD viable male infant 2. 3. s/p Rhogam administration 4. Normal recovery Brief history: She is a patient of [facility] who presented on 08/17/2024 with spontaneously ruptured membranes and in early labor. She was admitted and received an epidural for pain management. Pitocin was initiated for augmentation of labor with a maximum infusion rate of 8mU/mL. She progressed to spontaneously deliver a viable male infant on 08/17/2024 @ 1406. She was noted to have a 1st degree perineal laceration which was repaired in standard fashion and under sterile conditions. EBL 375mL. She has been doing well in her course. She is ambulating and tolerating a regular diet. She is urinating without difficulty and her lochia is normal. Her pain is well controlled with oral medications. She is without difficulty and she is bonding well with her baby. She had elevated blood pressures over night. She has persistently denied headaches, visual disturbances, RUQ or epigastric pain. She was given 100mg labetalol and her blood pressure returned to normal range. Her preeclampsia labs have remained WNL. She will be released home today on day #1 with instructions to continue taking her vitamin while and to continue taking ibuprofen and tylenol over the counter as needed for pain management. She will also be sent home with a prescription for labetalol 100mg PO bid. She has taken her blood pressure at home for the duration of her and she has been given instructions to continue taking her blood pressure home and has precise parameters provided for when to hold or take her PO labetalol. She intends to follow up with myself in 1 week for routine visit or sooner if needed. She has been given precautions to call if she has any worsening fevers, chills, abdominal pain, increased vaginal bleeding or foul smelling vaginal lochia. She has also been given instructions to return with severe headache, visual disturbances, RUQ or epigastric pain, or severe edema. She has been given a Blue Band to wear through 6 weeks . Physical exam: Normocephalic, atraumatic. Heart RRR w/o M/G/R, lungs CTAB, abdomen soft and nontender, perineum intact, light lochia rubra. Bilateral LE's trace edema. DTRs 1+, no clonus. ALLERGIES Allergies Allergy/AdvReac Type Severity Reaction Status Date / Time No Known Drug Allergies Allergy Verified 08/17/24 07:48 MEDICATIONS Ambulatory Orders Medication Instructions Recorded Confirmed labetalol 100 mg tablet 100 mg PO BID 30 days #60 tabs 08/18/24 LABS 08/18/24 08:37 08/18/24 08:37 Discharge Plan Discharge Patient Disposition: 01 Home, Self Care Prescriptions: New labetalol 100 mg tablet 100 mg PO BID 30 Days Qty: 60 0RF Activity Restrictions: No Restrictions Diet: Regular Print Language: Somali Patient Instructions: Vaginal After
--- NOTE | 2024-08-18 17:52 | Labor Flowsheet ---
Labor Flowsheet Datetime Report Generated by CPN: 08/18/2024 17:52 Datetime: 08/18/2024 12:33 VITAL SIGNS NBP Sys/Lilly/Mean (mmHg): 137 : 91 : 100 Pulse: 69 Datetime: 08/18/2024 07:00 Stage of : Datetime: 08/17/2024 15:35 SpO2 (%): 99 Datetime: 08/17/2024 14:12 Patient Care Comments: placenta Datetime: 08/17/2024 14:05 LaborFlag: Labor Datetime: 08/17/2024 14:02 STAGE 2 Pushing: Coached on Pushing Pushing Position: Pushing with Contractions; Pushing Lithotomy Pushing Progress: Descent with Pushing Datetime: 08/17/2024 14:00 UTERINE ACTIVITY Monitor Mode: External Frequency (min): 2-3 Quality: Strong Duration (sec): 60-110 Pattern: Normal: <= 5 Contractions in 10 Minutes Resting Tone (Palpate): Relaxed Pitocin Checklist: At Least 1 Acceleration of 15 bpm x 15 Seconds in 30 Minutes or Adequate Variabi lity; No More than 1 Late Deceleration Occurred in Past 30 Minutes; No More than 2 Variable Decelerat ions > 60 Seconds in Duration and decreasing >60 bpm in 30 minutes; No More than 5 Uterine Contractio ns in 10 Minutes for any 20 Minute Interval; Uterus Palpates Soft between Contractions ASSESSMENT A Monitor Mode: Telemetry FHR Baseline Rate : 135 Variability: Moderate 6-25 bpm Accelerations: 15X15 Decelerations: Late Category: Category II Datetime: 08/17/2024 13:42 COMMUNICATION Communication Comments: A.Marianne, CNM notified of pt complete Datetime: 08/17/2024 13:41 VAGINAL EXAM Dilatation (cm): 10.0 Effacement (%): 100 Station: -1 Exam by: A.Wayne, RN Datetime: 08/17/2024 13:07 PATIENT CARE Patient Position/Activity: Left Tilt Datetime: 08/17/2024 12:45 FHR Baseline Changes: Tachycardia Datetime: 08/17/2024 12:10 Medication Comments: IV bolus given for tachycardia Datetime: 08/17/2024 11:15 Monitor Interventions for UA: [place] Adjusted Datetime: 08/17/2024 11:02 MEDICATIONS Pitocin (milliunits): Increased to @ 6 Datetime: 08/17/2024 10:50 Membranes Ruptured Date/Time: 08/17/2024 05:45 Membranes Rupture Method: Spontaneous Amniotic Fluid Color: Clear Amniotic Fluid Amount: Moderate Amniotic Fluid Odor: Normal Datetime: 08/17/2024 10:12 Contraction Comments: abd palaptes spft inbetween cxtns Datetime: 08/17/2024 10:00 Temperature Route: Oral PAIN Pain Scale: 0 Datetime: 08/17/2024 09:16 I/O Interventions: Jain Cath Inserted Connect Comments: VO per A.Marianne, CNM to start oxytocin Datetime: 08/17/2024 09:00 Respirations: 16 Temperature (C): 36.8 Datetime: 08/17/2024 08:09 Epidural Procedure: Cath Placed Datetime: 08/17/2024 07:57 ANESTHESIA Anesthesia Plans: Local Datetime: 08/17/2024 07:56 PROCEDURE TIME OUT Procedure Verify: Correct Patient Identity; Correct Side and Site are Marked; Accurate Procedure Co nsent Form; Agreement on Procedure to be Done; Correct Patient Position; Relevant Images and Results are Properly Labeled and Displayed Epidural Positioning: Sitting Datetime: 08/17/2024 07:51 Anesthesia Comments: E.Estrella, CNA LTC at bedside discussing epidural and obtaining consent Datetime: 08/17/2024 07:34 Vaginal Bleeding: None Cervix, Consistency: Soft Cervix, Position: Posterior Datetime: 08/17/2024 06:53 Pain Goal: 7
== END 2024-08-18 17:30 | disposition home or self-care (01) | DRG 807 ==
LOC: WFO 06:21 → FBP 06:23
PROVIDERS: ADMIT Nurse Practitioner Obstetrics & Gynecology; ATTEND Nurse Practitioner Obstetrics & Gynecology